=== PATIENT | male | born 1990 | race Caucasian/White ===

== ENCOUNTER 2020-09-20 13:33 | Emergency (ER) | payer OTHER, SELFPAY ==
--- NOTE | ~2020-09-20 | XR_ITS ---
EXAMINATION: XR foot LT min 3V EXAM DATE: 09/20/2020 14:17 INDICATION: Injury to lt lateral foot, with bruising and swelling. TECHNIQUE: Left foot dorsoplantar, lateral and oblique projections obtained and reviewed. There is n o prior study for comparison. FINDINGS: There is acute closed posttraumatic fracture through the base of the left 5th metatarsal b one, Chang type fracture. This is essentially nondisplaced. There is overlying soft tissue swelling. No other suspicious findings. IMPRESSION: Acute left Chang fracture. Reviewed, dictated and finalized at location A. IMPRESSION: Acute left Chang fracture.
[2020-09-20 14:06] VITALS: BP 141/95; PULSE 76; RESP 16; TEMP 37.2; O2SAT 100
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
== END 2020-09-20 15:25 | disposition home or self-care (01) ==
PROVIDERS: Emergency Provider Nurse Practitioner
DX: S92.355A Nondisplaced fracture of fifth metatarsal bone, left foot, initial encounter for closed fracture (principal); V23.4XXA Motorcycle driver injured in collision with car, pick-up truck or van in traffic accident, initial encounter
CPT/HCPCS: 29515; 73630; 99213; 99214; G0463

== ENCOUNTER 2021-02-07 10:31 | Emergency (ER) | payer OTHER, SELFPAY ==
--- NOTE | ~2021-02-07 | XR_ITS ---
EXAMINATION: XR hand RT min 3V INDICATION: Right hand pain TECHNIQUE: Three views of the right hand are obtained. COMPARISON: None available FINDINGS: There is a tuft soft tissue laceration of the fourth finger. On the lateral view, there is a linear radiopaque density projecting distal to the fourth distal phalanx of unclear location. No fr acture is identified. The joint spaces are normal. No additional soft tissue abnormality is identifie d. IMPRESSION: 1. Soft tissue laceration of the tuft of the fourth finger. Linear radiopaque density projecting dist al to the fourth distal phalanx on the lateral view is of unclear location. Reviewed, dictated and finalized at location A. H MOVING MACHINE OPERATOR IMPRESSION: 1. Soft tissue laceration of the tuft of the fourth finger. Linear radiopaque d ensity projecting distal to the fourth distal phalanx on the lateral view is of unclear location.
[2021-02-07 10:42] VITALS: BP 152/115; PULSE 86; RESP 16; TEMP 36.9; O2SAT 100
[2021-02-07 10:44] VITALS: BP 152/115; PULSE 86; RESP 16; TEMP 36.9; O2SAT 100
--- NOTE | 2021-02-07 10:53 | ED.WOUNDLAC ---
HPI - Wound/Laceration General Chief Complaint: Wound/Laceration Stated Complaint: Laceration on finger Time Seen by Provider: 02/07/21 10:53 Source: patient History of Present Illness HPI narrative: Patient presents for the evaluation of finger after he caught it in a recliner when he was removing the recliner last night. Patient states injury has been over 12 hours old. Patient presents today for evaluation of laceration that occurred last night. Patient caught his RIGHT 4TH finger in recliner when he was moving it at home. Bleeding controlled. Patient is unsure of his last tetanus shot. Related Data Allergies Allergy/AdvReac Type Severity Reaction Status Date / Time No Known Allergies Allergy Unknown Verified 02/07/21 10:42 Review of Systems Review of Systems: CONSTITUTIONAL: Denies fever, chills, or sweats. EYES: Denies visual changes, redness, or discharge. ENT: Denies rhinorrhea, congestion, sore throat, or otalgia. CARDIOVASCULAR: Denies chest pain, palpitations, or edema. RESPIRATORY: Denies cough or dyspnea. GASTROINTESTINAL: Denies abdominal pain, nausea, vomiting, or diarrhea. GENITOURINARY: Denies dysuria or hematuria. SKIN: Denies rash or itching. MUSCULOSKELETAL: Denies back pain, joint pain, or myalgia. NEUROLOGIC: Denies headache, numbness, or weakness. PSYCHIATRIC: Denies anxiety or depression. REPLACED BY [facility] Past Medical History Medical History No acute medical problems Family History Family History (Updated 09/20/20 @ 15:10 by Lazara Phoenix CNP) Other Hypertension Social History Social History (Updated 09/20/20 @ 15:10 by Lazara Phoenix CNP) Smoking status: Never smoker Alcohol intake: current Comments At time of signature, agree with nursing past medical, surgical, social and family history. There is no relevant family history pertinent to the presenting complaint Exam Narrative: GENERAL: Well-appearing, well-nourished, and in no acute distress. HEAD: Normocephalic, atraumatic. EYES: PERRLA and EOMI. ENT: Nares clear, no rhinorrhea or epistaxis. Mucous membranes moist. NECK: Supple. CHEST: Clear to auscultation. No respiratory distress. HEART: Regular rate and rhythm. No murmur heard. Normal peripheral pulses. ABDOMEN: Soft, nontender, nondistended, normal active bowel sounds. EXTREMITIES: Normal range of motion. No edema. HAND EXAM - laceration TO TIP OF RIGHT 4TH FINGER. OLD LACERATION NO REPAIR. , no swelling, no erythema, normal digit cascade with flexion of fingers, median nerve, ulnar nerve, radial nerve is intact. Normal sensation of each side of each finger, can perform `ok? sign, `cross over finger test of index and middle fingers? and `thumbs up? sign, normal thumb opposition, no scissoring. good capillary refill and radial pulse. normal flexion and extension of fingers and wrist. normal supination at wrist. Normal forearm and elbow exam. SKIN: Warm, dry, no rash. NEURO: No focal deficits. Alert and oriented x3. Shira Coma Scale Eye Opening: Spontaneous 4 Shira Coma Scale Motor: Obeys Commands 6 Shira Coma Scale Verbal: Oriented 5 [place] Coma Scale Total 15 Extrem: Hand/finger images: 1. 2CM LACERATION OLD LACERATION Course Vital Signs Vital signs: Vital Signs Temperature 36.9 C 02/07/21 10:42 Pulse Rate 86 02/07/21 10:42 Respiratory Rate 16 02/07/21 10:42 Blood Pressure 152/115 H 02/07/21 10:42 Pulse Oximetry 100 02/07/21 10:42 Temperature 36.9 C 02/07/21 10:44 Pulse Rate 86 02/07/21 10:44 Respiratory Rate 16 02/07/21 10:44 Blood Pressure 152/115 H 02/07/21 10:44 Pulse Oximetry 100 02/07/21 10:44 Addressed elevated BP today. Today's blood pressure higher than recommended range. Discussed importance of follow -up with PCP and possible termite renewal inspector effects/cardiovascular events related to HTN. Currently patient denies headache, dizziness, vision changes, CP or shortn
--- NOTE | 2021-02-07 11:16 | PC.NURSE ---
1110- while peeling off the strings of the gauze roll that pt used from home that we are soaking off his fingertip, pt talking and wondering why it stuck to his skin this time since it didnt last night, then pt states oh i bet it is because i sprayed new skin to the wound and then placed nikki on.
--- NOTE | 2021-02-07 11:30 | PC.NURSE ---
1120-- pt refused tdap- pt states that he recalled having one last year at [facility] when he got stitches.
== END 2021-02-07 11:47 | disposition home or self-care (01) ==
PROVIDERS: Emergency Provider Nurse Practitioner Family
DX: S61.214A Laceration without foreign body of right ring finger without damage to nail, initial encounter (principal); T14.8XXA Other injury of unspecified body region, initial encounter; X58.XXXA Exposure to other specified factors, initial encounter
CPT/HCPCS: 29130; 73130; 99213; G0463

== ENCOUNTER 2022-01-06 13:12 | Emergency (ER) | payer OTHER, SELFPAY ==
--- NOTE | ~2022-01-06 | XR_ITS ---
EXAMINATION: XR wrist RT min 3V DATE: 01/06/2022 13:41 INDICATION: Right wrist pain. Injury. TECHNIQUE: 4 views of right wrist were obtained. COMPARISON: None. FINDINGS: Bone alignment is normal. No fracture. Joint spaces are well maintained. IMPRESSION: 1. Normal right wrist. Reviewed, dictated and finalized at location A. M INSTALLATION TECHNICIAN IMPRESSION: 1. Normal right wrist.
--- NOTE | ~2022-01-06 | XR_ITS ---
EXAMINATION: XR hand RT min 3V DATE: 01/06/2022 13:41 INDICATION: Right hand pain. TECHNIQUE: 3 views of right hand were obtained. COMPARISON: None. FINDINGS: Bone alignment is normal. No fracture. Joint spaces are well maintained. IMPRESSION: 1. Normal right hand. Reviewed, dictated and finalized at location A. USION DIE REPAIR MANAGER IMPRESSION: 1. Normal right hand.
[2022-01-06 13:23] VITALS: BP 152/98; PULSE 89; RESP 16; TEMP 37; O2SAT 99
--- NOTE | 2022-01-06 13:32 | ED.UPPEXIN ---
HPI - Extremity Injury (Upper) General Chief Complaint: Extremity Injury, Upper Stated Complaint: right hand pain Time Seen by Provider: 01/06/22 13:14 Source: patient Mode of arrival: ambulatory Limitations: no limitations History of Present Illness HPI narrative: Mr. Jason is a 31-year-old male patient presenting to clinic today with complaints of left hand and wrist pain. He reports that he was working on a garage door and to spring came loose and hit him in his hand and wrist. Has some numbness to the right 4th finger as well as pain across the dorsal hand and radiating around the right wrist. Related Data Home Medications Medication Instructions Recorded Confirmed No Home Medications 01/06/22 01/06/22 Allergies Allergy/AdvReac Type Severity Reaction Status Date / Time No Known Allergies Allergy Unknown Verified 01/06/22 13:26 Review of Systems Review of Systems: Pertinent positives per HPI. Patient denies any fever, chills, rash, headache, visual changes, dizziness, cough, runny nose, sore throat, shortness of breath, chest pain, palpitations, nausea, vomiting, diarrhea, constipation, abdominal pain, or any urinary issues. [facility] Past Medical History Medical History No acute medical problems Family History Family History Other Hypertension Social History Social History Smoking status: Never smoker Alcohol intake: current Comments At the time of my signature, I reviewed and agree with the nursing past medical, surgical, social, and family history. There is no relevant family history pertinent to the patient complaint. Exam Narrative: General: Well-developed, well nourished, in no apparent distress Head: Normocephalic, atraumatic. Cardio: Regular rate and rhythm, s1 and s2 normal, no murmur appreciated. Resp: Clear to auscultation bilaterally, no rhonchi, rales, wheezing or rubs. Musculoskeletal: No deformity, tender to palpation over the dorsal left hand and over the dorsal wrist, grossly normal range of motion, muscle strength strong and equal, peripheral pulse strong, no edema, no cyanosis, normal gait and station Course Course Emergency Course: Portions of this record may have been created with voice recognition software. Level of Care: Express Care Visit Vital Signs Vital signs: Vital Signs Temperature 37.0 C 01/06/22 13:23 Pulse Rate 89 01/06/22 13:23 Respiratory Rate 16 01/06/22 13:23 Blood Pressure 152/98 H 01/06/22 13:23 Pulse Oximetry 99 01/06/22 13:23 Oxygen Delivery Room Air 01/06/22 13:23 Temperature 37.0 C 01/06/22 13:23 Pulse Rate 89 01/06/22 13:23 Respiratory Rate 16 01/06/22 13:23 Blood Pressure 152/98 H 01/06/22 13:23 Pulse Oximetry 99 01/06/22 13:23 Oxygen Delivery Room Air 01/06/22 13:23 Vital signs reviewed MDM - Extremity Injury (Upper) MDM Narrative Medical decision making narrative: At the time of visit patient is resting comfortably on exam table. X-ray was performed of the left wrist and hand and were negative for any sign of fracture or malalignment. I suspect patient has a soft tissue injury/hand contusion. Supportive measures were discussed with the patient he voiced understanding of discharge instructions and agrees to treatment plan. Differential Diagnosis Differential diagnosis: Likely sprain and strain of wrist, fracture of wrist, finger sprain, fracture of hand and other ( soft tissue injury, contusion) Imaging Data Radiologist's impression: normal right hand and wrist x-ray Discharge Plan Discharge Clinical Impression: Contusion of hand including fingers Qualifiers: Encounter type: initial encounter Laterality: right Qualified Code(s): S60.221A - Contusion of right hand, initial encounter Patient Disposit
== END 2022-01-06 13:56 | disposition home or self-care (01) ==
PROVIDERS: Emergency Provider Nurse Practitioner Family
DX: S60.221A Contusion of right hand, initial encounter (principal); W22.8XXA Striking against or struck by other objects, initial encounter
CPT/HCPCS: 73110; 73130; 99213; G0463

== ENCOUNTER 2022-09-11 13:40 | Emergency (ER) | payer OTHER, SELFPAY ==
--- NOTE | 2022-09-11 13:48 | ED.EAR ---
HPI - Ear Problem General Chief complaint: Ear Stated complaint: right ear problem Time Seen by Provider: 09/11/22 13:48 Source: patient Mode of arrival: ambulatory Limitations: no limitations History of Present Illness HPI Narrative: Patient is a 32-year-old male who presents with right ear pain after using Q-tip this morning. Patient states he had been getting a significant amount of wax out but states he felt it push in and now has significant ear pressure. Denies any congestion, sore throat, cough, fever, chills. Has not taken anything for symptoms. MD Complaint: ear pain Related Data Home Medications Medication Instructions Recorded Confirmed No Home Medications 01/06/22 09/11/22 Allergies Allergy/AdvReac Type Severity Reaction Status Date / Time No Known Allergies Allergy Unknown Verified 09/11/22 14:02 Review of Systems Review of Systems: All systems reviewed & are unremarkable except as noted in HPI and below Constitutional: Constitutional: Denies body ache(s), Denies chills, Denies fever(s), Denies headache(s) and Denies malaise Eyes: Eyes: Denies blurry vision, Denies eye discharge and Denies irritation ENT: Reports otalgia, Denies headache(s), Denies nasal congestion, Denies nasal discharge and Denies sore throat Cardiovascular: Cardiovascular: Denies chest pain, Denies edema, Denies palpitations and Denies dyspnea on exertion Respiratory: Respiratory: Denies cough and Denies dyspnea on exertion Gastrointestinal: Gastrointestinal: Denies abdominal pain, Denies diarrhea, Denies nausea and Denies vomiting Musculoskeletal: Musculoskeletal: Denies back pain, Denies arthralgias and Denies muscle weakness Integumentary/Breasts: Skin/Breast: Denies pruritus and Denies rash Neurologic: Denies headache(s) Psychiatric: Psychiatric: Reports no additional psychiatric complaints Endocrine: Endocrine: Denies palpitations PMFSH Past Medical History Medical History No acute medical problems Family History Family History Other Hypertension Social History Social History Smoking status: Never smoker Alcohol intake: current Comments At time of signature, agree with nursing past medical, surgical, social and family history. There is no relevant family history pertinent to the presenting complaint? Exam Const: General: cooperative, healthy appearing, no acute distress and well nourished Nutritional Appearance: well nourished Orientation/consciousness: patient oriented x3 Limitations: no limitations HENMT: Head: normal to inspection, normocephalic and atraumatic Ears: hearing grossly normal bilaterally, TM normal on the left, EAC's normal, no periauricular adenopathy and TM abnormal obstructed by cerumen on the right Face/Nose/Sinus: Normal external nose present, Normal nares present, Normal nasal mucous membranes and turbinates present, No nasal discharge present, normal facial exam and sinuses nontender Face and sinus: normal facial exam and sinuses nontender Mouth: Yes Normal oral and palatal mucosa present, Yes lip normal, Yes tongue normal and Yes moist mucous membranes Throat: posterior oropharynx normal, tonsils normal and uvula midline Eyes: General: appearance normal, both eyes and all related structures Alignment and Position: alignment normal and position normal Eyelids: eyelids normal Pupils: Equal, round and reactive pupils present EOM: EOMs intact bilaterally Neck: Neck: normal visual inspection, full ROM, no lymphadenopathy and supple Chest: Chest palpation & inspection: normal inspection of the chest Resp: Effort & Inspection: normal respiratory effort and able to speak in complete sentences Auscultation: clear to auscultation bilaterally, no crackles, no rales, no rhonchi and no wheezes Cardio
[2022-09-11 13:50] VITALS: BP 177/98; PULSE 83; RESP 16; TEMP 36.7; O2SAT 99
== END 2022-09-11 14:32 | disposition home or self-care (01) ==
PROVIDERS: Emergency Provider Nurse Practitioner Family; PCP Emergency Medicine
DX: H61.21 Impacted cerumen, right ear (principal)
CPT/HCPCS: 69209; 99212; G0463